=== PATIENT | female | born 1995 | race Caucasian/White ===

== ENCOUNTER 2018-12-16 21:49 | Emergency (ER) | payer OTHER ==
[2018-12-16] MEDS ORDERED: CEPHALEXIN 500MG PREPACK#4 BTL TAKEHOME ONE (22:43)
--- NOTE | 2018-12-16 22:46 | EDPHY ---
H & P Stated Complaint: LFA LAC FROM GLASS MIRROR SHARD LAST NIGHT AROUND 1:00AM. TETANUS UTD. Time Seen by Provider: 12/16/18 22:10 HPI/ROS: Chief Complaint: Arm laceration HPI: 23-year-old woman sustained a laceration to her left forearm she states with a broken mirror. This occurred approximately 20 hr ago. She went to urgent care was told this need to be treated it the emergency department. She is up-to-date in her tetanus. She has been keeping it clean and wrapped. No discharge from the wound. No redness. ROS: 10 systems were reviewed and were negative except those elements noted in the HPI. Social History: [No] smoking, [no] alcohol, [ no recreational drug use] Family History: [non-contributory] Physical Exam: General: Awake, alert, no acute distress, anxious. Left upper extremity: Patient has a 3 cm laceration into the subcutaneous fat on the volar surface of her left forearm. There is no foreign bodies. There is no erythema. There is no discharge. Is normal vital is tissue around it. Sensation is intact distally. 2+ radial ulnar pulses. Capillary refills less than 2 sec. Sensation intact in radial, median, ulnar nerve distribution. Full flexion extension strength of her flexors and extensors of her hand. - Personal History LMP (Females 10-55): 1-7 Days Ago Current Tetanus Diphtheria and Acellular Pertussis (TDAP): Yes Tetanus Vaccine Date: <10 YEARS - Medical/Surgical History Hx Asthma: No Hx Chronic Respiratory Disease: No Hx Diabetes: No Hx Cardiac Disease: No Hx Renal Disease: No Hx Cirrhosis: No Hx Alcoholism: No Hx HIV/AIDS: No Hx Splenectomy or Spleen Trauma: No Other PMH: L KNEE SX X 4, ANXIETY/DEPRESSION Constitutional: Initial Vital Signs Temperature (C) 36.3 C 12/16/18 22:06 Heart Rate 59 L 12/16/18 22:06 Respiratory Rate 20 12/16/18 22:06 Blood Pressure 101/62 12/16/18 22:06 O2 Sat (%) 100 12/16/18 22:06 O2 Delivery Mode Room Air Allergies/Adverse Reactions: No Known Allergies Allergy (Unverified 12/16/18 22:05) Home Medications: Medication Instructions Recorded Cephalexin [Keflex (*)] 500 mg PO Q6H #20 cap 12/16/18 Desog-E.estradiol/E.estradiol 12/16/18 [Viorele 28 Day Tablet] Gabapentin [Neurontin 400 MG (*)] 12/16/18 Sertraline HCl [Zoloft 100mg (*)] 100 mg PO DAILY 12/16/18 lamoTRIgine [Lamictal] 12/16/18 Medical Decision Making Procedures: Procedure: Laceration repair. Verbal consent was obtained from the patient. The 3 cm laceration on the left forearm was anesthetized in the usual fashion. The wound was irrigated, draped and explored to its base with a gloved finger. There were no deep structures involved. No tendon injury was identified. The edges were revised with scissors given the age of the wound. The wound was repaired with 5, 5-0 Ethilon simple interrupted sutures. The wound repair was a complex closure with revision of wound edges. The procedure was performed by myself. ED Course/Re-evaluation: 23-year-old with a 3 cm superficial laceration over left forearm. Given the age of the wound increased risk for infection the wound edges were revised prior to closure. There was excellent result in the closure of this complex wound. Patient has been given prescription for Keflex and strict follow-up instructions for any signs of infection. Departure - Departure Disposition: Home, Routine, Self-Care Clinical Impression: Laceration Condition: Good Instructions: Care For Your Stitches (ED), Laceration (ED) Additional Instructions: Sutures need to be removed in 7 days. Please take your full course of antibiotics. Return to the emergency department for redness, discharge from the wound, streaking up your arm, fever, increasing pain, or any other concerns. Referrals: [facility],. [Clinic] - As per Instructions Prescriptions: Cephalexin [Keflex (*)] 500 mg PO Q6H #20 cap
[2018-12-16 23:10] VITALS: BP 100/62
== END 2018-12-16 23:04 | disposition home or self-care (01) ==
LOC: CED 21:49
PROC: 0HQEXZZ Repair Left Lower Arm Skin, External Approach (ICD-10-PCS; principal; 2018-12-16)
DX: S51.812A Laceration without foreign body of left forearm, initial encounter (principal); W26.8XXA Contact with other sharp object(s), not elsewhere classified, initial encounter; Y92.9 Unspecified place or not applicable; Y99.9 Unspecified external cause status
CPT/HCPCS: 99283-ER